=== PATIENT | male | born 1970 | race Caucasian/White ===

== ENCOUNTER 2016-07-11 07:02 | Emergency (ER) | payer OTHER ==
[~2016-07-11] VITALS: Ht 182.9 cm; Wt 136.3 kg
[2016-07-11] MEDS ORDERED: NAPROSYN500 MG PO (08:08)
[2016-07-11] MEDS ORDERED: NORCO 5/3251 TABLET PO (08:08)
[2016-07-11 08:25] VITALS: BP 147/99
== END 2016-07-11 08:30 | disposition home or self-care (01) ==
LOC: EME 07:02
DX: M25.561 Pain in right knee (principal)
CPT/HCPCS: 73564; 99281; 99283